=== PATIENT | male | born 1985 | race Caucasian/White ===

== ENCOUNTER 2016-09-09 13:21 | Emergency (ER) | payer SELFPAY ==
[~2016-09-09 13:21] MED LIST: AMOXICILLIN PO; ANTIVERT PO; FLONASE 0.05% N16 G1
[2016-09-09 14:20] LABS: INFLUENZA A NEG (NEG); INFLUENZA B POS (NEG)
== END 2016-09-09 14:30 | disposition home or self-care (01) ==
LOC: CFTX 13:21
PROVIDERS: Physician Assistant
DX: J10.1 Influenza due to other identified influenza virus with other respiratory manifestations (principal)
CPT/HCPCS: 87651; 87804; 99282

== ENCOUNTER 2016-10-23 09:30 | Emergency (ER) | payer SELFPAY ==
[2016-10-23 10:11] LABS: INFLUENZA A NEG (NEG); INFLUENZA B NEG (NEG)
== END 2016-10-23 10:20 | disposition home or self-care (01) ==
LOC: CFTX 09:30 → CED 09:30 → CFTX 09:48
PROVIDERS: Physician Assistant
DX: J06.9 Acute upper respiratory infection, unspecified (principal); F17.200 Nicotine dependence, unspecified, uncomplicated; Z88.8 Allergy status to other drugs, medicaments and biological substances
CPT/HCPCS: 87804; 99282